=== PATIENT | male | born 1985 | race Hispanic/Latino ===

== ENCOUNTER 2022-03-02 10:53 | Inpatient (IN) | payer SELFPAY ==
[2022-03-02] MEDS ORDERED: KETOROLAC 30 MG/ML INJ ONE ×2 (11:13→13:37)
[2022-03-02] MEDS ORDERED: ALBUTEROL 2.5 MG/3 ML NEB SOL ONE ×2 (11:13→13:36)
[2022-03-02] MEDS ORDERED: ONDANSETRON 4 MG/2 ML VIAL ONE (11:13)
[2022-03-02 11:25] LABS: Absolute Lymphocytes (CBC) 1.1 K/uL (0.7-4.9); Lymphocytes % 7.4 % (15.3-44.8); MCV 85.7 fL (80-100); MPV 8.8 fL (7.6-11.3); RBC Red Blood Cell Count 5.14 M/uL (4.33-5.43)
--- NOTE | 2022-03-02 11:30 | RAD REPORT ---
EXAM DESCRIPTION: RAD - Chest Single View - 03/02/2022 11:21 am CLINICAL HISTORY: CHEST PAINleft side COMPARISON: None TECHNIQUE: AP portable chest image was obtained 03/02/2022 11:21 am . FINDINGS: Lung volumes are low. Moderately large area of consolidation seen in the lateral lower lef t lung field typical for pneumonia. No focal right lung parenchymal process confirmed. The low lung v olumes accentuate the lung parenchymal pattern. Trachea is midline. Heart and vasculature are normal. No measurable pleural effusion and no pneumotho rax. No acute bony abnormality seen. No acute aortic findings suspected. IMPRESSION: Moderately large pneumonia in the left lung base.
[2022-03-02] MEDS ORDERED: NA CHLORIDE 0.9% 1,000 ML ONE (11:31)
[2022-03-02 11:43] LABS: Potassium 3.1 mmol/L (3.5-5.1); Troponin High Sensitivity 8.8 pg/mL (<58.9)
--- NOTE | 2022-03-02 12:28 | RAD REPORT ---
EXAM DESCRIPTION: CT - Chest For Pe Angio - 03/02/2022 12:11 pm CLINICAL HISTORY: elevated D-dimer, hypoxic, SOB COMPARISON: Chest Single View dated 03/02/2022 TECHNIQUE: Dynamically enhanced 3 mm thick images of the chest were obtained during administration o f approximately 150mL Isovue 370 IV contrast. Coronal and oblique MIP reconstruction images were gene rated and reviewed. Exam utilizes a protocol to evaluate the pulmonary arterial tree. All CT scans are performed using dose optimization technique as appropriate and may include automated exposure control or mA/KV adjustment according to patient size. FINDINGS: Exam has significant motion limitation. No pulmonary emboli are identified. The aorta as imaged shows no acute or suspicious finding. No pericardial thickening or effusion. Moderately large area of consolidation is present involving the lingula of the left upper lobe. A few air bronchograms are seen. No cavitation or mass lesion. Pulmonary hemorrhage is not suspected. Mini mal patchy airspace opacities are present in the posteromedial left lower lobe, posterior gutter on t he right and in the mid lateral right upper lobe. Findings are felt to be typical for multifocal pneu monia with the largest area at the anterior left base. No pleural effusion or pleural thickening. A few small reactive type mediastinal and hilar lymph nodes are present. No pathologic mediastinal ly mphadenopathy suspected. No chest wall masses or abnormal axillary lymphadenopathy. IMPRESSION: Motion degraded study shows no identifiable pulmonary emboli. Moderately large consolidated pneumonia in the lingula anterior left lung base. Patchy areas of addit ional pneumonia noted in the right upper lobe, right lower lobe posterior gutter and posteromedial le ft lower lobe.
--- NOTE | 2022-03-02 13:00 | EDPHYS ---
Physician Documentation [facility] Name: Jesse Cunha Age: 36 yrs Sex: Male : 1985 Arrival Date: 03/02/2022 Time: 10:54 Bed 5 Private MD: ED Physician Uriel Julien HPI: 03/02 11:00 This 36 yrs old Male presents to ER via Ambulatory with complaints of Chest jh7 Pain, Doesn't Feel Right. 11:00 Onset: The symptoms/episode began/occurred acutely. Associated signs and symptoms: jh7 Pertinent positives: chest pain, cough, shortness of breath, Pertinent negatives: abdominal pain, diarrhea, fever, headache, nasal discharge. 36-year-old male presents with left-sided chest pain worsening with cough since he was diagnosed with the flu on Sunday. Reports that symptoms worsened today and now he feels short of breath. Reports the pain is an 8 out of 10. Denies medical problems and does not smoke.. Historical: - Allergies: 11:01 No Known Allergies; ld1 - Home Meds: 11: None [Active]; ld1 - PMHx: 11: None; ld1 - PSHx: 11:01 None; ld1 - Immunization history:: Adult Immunizations up to date, Client reports receiving the 2nd dose of the Covid vaccine. - Social history:: Smoking status: Patient denies any tobacco usage or history of. Patient/guardian denies using alcohol. ROS: 11:00 Constitutional: Negative for fever, chills, and weight loss, Eyes: Negative for injury, jh7 pain, redness, and discharge, ENT: Negative for injury, pain, and discharge, Neck: Negative for injury, pain, and swelling, Abdomen/GI: Negative for abdominal pain, nausea, vomiting, diarrhea, and constipation, Back: Negative for injury and pain, MS/Extremity: Negative for injury and deformity, Skin: Negative for injury, rash, and discoloration, Neuro: Negative for headache, weakness, numbness, tingling, and seizure. 11:00 Cardiovascular: Positive for chest pain, Negative for palpitations. 11:00 Respiratory: Positive for cough, shortness of breath, Negative for wheezing. 11:00 All other systems are negative. Exam: 11:00 Eyes: Pupils equal round and reactive to light, extra-ocular motions intact. Lids and jh7 lashes normal. Conjunctiva and sclera are non-icteric and not injected. Cornea within normal limits. Periorbital areas with no swelling, redness, or edema. ENT: Nares patent. No nasal discharge, no septal abnormalities noted. Tympanic membranes are normal and external auditory canals are clear. Oropharynx with no redness, swelling, or masses, exudates, or evidence of obstruction, uvula midline. Mucous membranes moist. Neck: Trachea midline, no thyromegaly or masses palpated, and no cervical lymphadenopathy. Supple, full range of motion without nuchal rigidity, or vertebral point tenderness. No Meningismus. Abdomen/GI: Soft, non-tender, with normal bowel sounds. No distension or tympany. No guarding or rebound. No evidence of tenderness throughout. Back: No spinal tenderness. No costovertebral tenderness. Full range of motion. Skin: Warm, dry with normal turgor. Normal color with no rashes, no lesions, and no evidence of cellulitis. MS/ Extremity: Pulses equal, no cyanosis. Neurovascular intact. Full, normal range of motion. Neuro: Awake and alert, GCS 15, oriented to person, place, time, and situation. Motor strength 5/5 in all extremities. Sensory grossly intact. Normal gait. 11:00 Constitutional: The patient appears alert, awake, uncomfortable. 11:00 Respiratory: mild respiratory distress is noted, Respirations: tachypnea, Breath sounds: rales, are scattered, decreased breath sounds, are scattered. Vital Signs: 10:58 BP 128 / 86; Pulse 118; Resp 20; Temp 98.5; Pulse Ox 94% on R/A; Weight 83.91 kg; ld1 Height 5 ft. 10 in. (177.80 cm); Pain 8/10; 13:30 BP 129 / 80; Pulse 108; Resp 20; Pulse Ox 98% ; bp 15:00 BP 122 / 68; Pulse 110; Resp 18; Pulse Ox 92% ; bp 17:00 BP 137 / 76; Pulse 114; Resp 20; Pulse Ox 92% ; bp 10:58 Body Mass Index 26.54 (83.91 kg, 177.80 cm) 1 MDM: 10:[address] [facility] 13:11 Differential diagnosis: bacterial infection, bronchitis, pneumonia Pulmonary embolism. [facility] Data reviewed: vital signs, nurses notes, lab test result(s), EKG, radiologic studies, CT scan, plain films. Data interpreted: Pulse oximetry: is 94 %. Interpretation: acceptable. Counseling: I had a detailed discussion with the patient and/or guardian regarding: the historical points, exam findings, and any diagnostic results supporting the discharge/admit diagnosis, the need for further work-up and treatment in the hospital. Response to treatment: the patient's symptoms have mildly improved after treatment. ED course: Spoke to Dr. Luo regarding patient admission. The patient is to be admitted under inpatient status.. 03/02 11:03 Order name: Basic Metabolic Panel; Complete Time: 11:52 [facility] 03/02 11:03 Order name: CBC with Diff; Complete Time: 11:52 [facility] 03/02 11:03 Order name: D-Dimer; Complete Time: 11:58 [facility] 03/02 11:03 Order name: Troponin HS; Complete Time: 11:52 [facility] 03/02 11:12 Order name: Lactate w/ 2H reflex if indic.; Complete Time: 12:03 [facility] 03/02 11:52 Order name: Blood Culture Adult (2) [facility] 03/02 11:03 Order name: XRAY Chest (1 view); Complete Time: 11:52 [facility] 03/02 11:58 Order name: CT Chest For PE Angio; Complete Time: 12:47 [facility] 03/02 12:56 Order name: COVID-19/FLU A+B [facility] 03/02 11:03 Order name: EKG; Complete Time: 11:04 [facility] 03/02 11:03 Order name: Cardiac monitoring; Complete Time: 11:15 [facility] 03/02 11:03 Order name: EKG - Nurse/Tech; Complete Time: 11:15 [facility] 03/02 11:03 Order name: IV Saline Lock; Complete Time: 11:35 [facility] 03/02 11:03 Order name: Labs collected and sent; Complete Time: 11:35 [facility] 03/02 11:03 Order name: O2 Per Protocol; Complete Time: : [facility] 03/02 11:03 Order name: O2 Sat Monitoring; Complete Time: 11:15 [facility] EC:00 Rate is 115 beats/min. Rhythm is regular. GA interval is normal at 138 msec. QRS jh7 interval is normal at 88 msec. QT interval is normal at 310 msec. No Q waves. No ST changes noted. Clinical impression: Sinus tachycardia. Administered Medications: 11:30 Drug: Ketorolac 15 mg Route: IVP; Site: right forearm; bp 17:12 Follow up: Response: No adverse reaction bp 11:30 Drug: Albuterol 2.5 mg Route: Inhalation; bp 11:30 Drug: Zofran (Ondansetron) 4 mg Route: IVP; Site: right forearm; bp 13:51 Follow up: Response: No adverse reaction bp 11:30 Drug: NS 0.9% 1000 ml Route: IV; Rate: 1 bolus; Site: right forearm; bp 13:51 Follow up: IV Status: Completed infusion; IV Intake: 1000ml bp 13:10 Drug: Albuterol - atroVENT (ipratropium) (3:1) (2.5 mg - 0.5 mg) 3 ml Route: Nebulizer; bp 17:11 Follow up: Response: No adverse reaction bp 13:10 Drug: Ketorolac 15 mg Route: IVP; Site: right forearm; bp 17:11 Follow up: Response: No adverse reaction; Pain is decreased bp 13:30 Drug: Rocephin (cefTRIAXone) 1 grams Route: IV; Rate: 1 calculated rate; Site: right bp forearm; 17:12 Follow up: IV Status: Completed infusion; IV Intake: 100ml bp 13:30 Drug: AZITHromycin 500 mg Route: IVPB; Infused Over: 1 hrs; Site: right forearm; bp 17:11 Follow up: IV Status: Completed infusion; IV Intake: 250ml bp 13:30 Drug: Potassium Effervescent Tablet 50 mEq Route: PO; bp 17:11 Follow up: Response: No adverse reaction bp Disposition Summary: 03/02/22 12:59 Hospitalization Ordered Hospitalization Status: Inpatient Admission [facility] Provider: Leo Luo [facility] Location: Telemetry/MedSurg (Inpatient) [facility] Condition: Stable [facility] Problem: new [facility] Symptoms: are unchanged [facility] Bed/Room Type: Standard [facility] Room Assignment: 228(03/02/22 17:00) dw Diagnosis - Pneumonia, unspecified organism [facility] - Shortness of breath [facility] Forms: - Medication Reconciliation Form [facility] - SBAR form [facility] Signatures: Dispatcher [employer] Edelmira Comer RN RN Antwan Shelby RN RN bp Anabell Smyth RN RN ld1 Marianela Beard, EXTRACTOR P[employer]ER [place] [id number] Corrections: (The following items were deleted from the chart) 17:00 12:59 [facility]
--- NOTE | 2022-03-02 13:00 | ER ---
Nurse's Notes [facility] Name: Jesse Cunha Age: 36 yrs Sex: Male : 1985 Arrival Date: 03/02/2022 Time: 10:54 Bed 5 Private MD: Diagnosis: Pneumonia, unspecified organism;Shortness of breath Presentation: 03/02 10:58 Chief complaint: Patient states: Tested positive for flu on Sunday. Cough with left ld1 sided chest pain. Coronavirus screen: Client presents with at least one sign or symptom that may indicate coronavirus-19. Standard/surgical mask placed on the client. Ebola Screen: No symptoms or risks identified at this time. Initial Sepsis Screen: Does the patient meet any 2 criteria? No. Patient's initial sepsis screen is negative. Does the patient have a suspected source of infection? No. Patient's initial sepsis screen is negative. Risk Assessment: Do you want to hurt yourself or someone else? Patient reports no desire to harm self or others. Onset of symptoms was March 02, 2022 at 11:00. 10:58 Method Of Arrival: Ambulatory ld1 10:58 Acuity: MOE 3 ld1 Triage Assessment: 11:01 General: Appears in no apparent distress. comfortable, Behavior is calm, cooperative, ld1 appropriate for age. Pain: Complains of pain in anterior aspect of left upper chest Pain does not radiate. Pain currently is 8 out of 10 on a pain scale. Quality of pain is described as sharp, shooting, throbbing. EENT: No signs and/or symptoms were reported regarding the EENT system. Neuro: Level of Consciousness is awake, alert, obeys commands, Oriented to person, place, time, situation. Cardiovascular: Capillary refill < 3 seconds Patient's skin is warm and dry. Rhythm is sinus tachycardia. Respiratory: Reports shortness of breath at rest Airway is patent Respiratory effort is even, labored, the patient has mild shortness of breath. GI: Abdomen is flat, non-distended. : No signs and/or symptoms were reported regarding the genitourinary system. Derm: No signs and/or symptoms reported regarding the dermatologic system. Musculoskeletal: No signs and/or symptoms reported regarding the musculoskeletal system. Historical: - Allergies: 11: No Known Allergies; ld1 - Home Meds: 11:01 None [Active]; ld1 - PMHx: 11:01 None; ld1 - PSHx: 11:01 None; ld1 - Immunization history:: Adult Immunizations up to date, Client reports receiving the 2nd dose of the Covid vaccine. - Social history:: Smoking status: Patient denies any tobacco usage or history of. Patient/guardian denies using alcohol. Screenin:00 [facility] ED Fall Risk Assessment (Adult) History of falling in the last 3 months, bp including since admission No falls in past 3 months (0 pts). Humpty Dumpty Scale Fall Assessment Tool (age< 18yrs) Age 13 years and above (1 pt) Gender Male (2 pts). Abuse screen: Denies threats or abuse. Denies injuries from another. Nutritional screening: No deficits noted. Tuberculosis screening: No symptoms or risk factors identified. Fall Risk Fall in past 12 months (25 points). No secondary diagnosis (0 pts). Assessment: 11:00 General: SEE TRIAGE NOTE. bp 13:00 Reassessment: PER PROVIDER, PNEUMONIA NOTED ON CXR. bp 13:53 Reassessment: ADMIT INITIATED. bp Vital Signs: 10:58 BP 128 / 86; Pulse 118; Resp 20; Temp 98.5; Pulse Ox 94% on R/A; Weight 83.91 kg; ld1 Height 5 ft. 10 in. (177.80 cm); Pain 8/10; 13:30 BP 129 / 80; Pulse 108; Resp 20; Pulse Ox 98% ; bp 15:00 BP 122 / 68; Pulse 110; Resp 18; Pulse Ox 92% ; bp 17:00 BP 137 / 76; Pulse 114; Resp 20; Pulse Ox 92% ; bp 10:58 Body Mass Index 26.54 (83.91 kg, 177.80 cm) ld1 ED Course: 10:54 Patient arrived in ED. am2 10:55 Marianela Beard FNP [facility] jh7 10:55 Uriel Julien MD is Attending Physician. 7 11:00 Triage completed. ld1 11:00 Patient has correct armband on for positive identification. Bed in low position. Call bp light in reach. Side rails up X2. Client placed on continuous cardiac and pulse oximetry monitoring. NIBP monitoring applied. 11:00 Oxygen administration via nasal cannula \T\ 2L/min. bp 11:01 Arm band placed on right wrist. ld1 11:04 Antwan Khalil, RN is Primary Nurse. bp 11:20 Missed attempt(s): 22 gauge in right antecubital area. kr3 11:23 XRAY Chest (1 view) In Process Unspecified. EDMS 11:30 Inserted saline lock: 22 gauge in right forearm, using aseptic technique. Blood bp collected. 12:13 CT Chest For PE Angio In Process Unspecified. EDMS 12:58 Leo Luo is Hospitalizing Provider. jh7 17:08 No provider procedures requiring assistance completed. Patient admitted, IV remains in bp place. Administered Medications: 11:30 Drug: Ketorolac 15 mg Route: IVP; Site: right forearm; bp 17:12 Follow up: Response: No adverse reaction bp 11:30 Drug: Albuterol 2.5 mg Route: Inhalation; bp 11:30 Drug: Zofran (Ondansetron) 4 mg Route: IVP; Site: right forearm; bp 13:51 Follow up: Response: No adverse reaction bp 11:30 Drug: NS 0.9% 1000 ml Route: IV; Rate: 1 bolus; Site: right forearm; bp 13:51 Follow up: IV Status: Completed infusion; IV Intake: 1000ml bp 13:10 Drug: Albuterol - atroVENT (ipratropium) (3:1) (2.5 mg - 0.5 mg) 3 ml Route: Nebulizer; bp 17:11 Follow up: Response: No adverse reaction bp 13:10 Drug: Ketorolac 15 mg Route: IVP; Site: right forearm; bp 17:11 Follow up: Response: No adverse reaction; Pain is decreased bp 13:30 Drug: Rocephin (cefTRIAXone) 1 grams Route: IV; Rate: 1 calculated rate; Site: right bp forearm; 17:12 Follow up: IV Status: Completed infusion; IV Intake: 100ml bp 13:30 Drug: AZITHromycin 500 mg Route: IVPB; Infused Over: 1 hrs; Site: right forearm; bp 17:11 Follow up: IV Status: Completed infusion; IV Intake: 250ml bp 13:30 Drug: Potassium Effervescent Tablet 50 mEq Route: PO; bp 17:11 Follow up: Response: No adverse reaction bp Medication: 11:00 VIS not applicable for this client. bp Intake: 13:51 IV: 1000ml; Total: 1000ml. bp 17:11 IV: 250ml; Total: 1250ml. bp 17:12 IV: 100ml; Total: 1350ml. bp Outcome: 12:59 Decision to Hospitalize by Provider. 7 18:05 Patient left the ED. bp Signatures: Dispatcher [employer] EDMS Re Zuniga am2 Antwan Khalil RN RN bp Anabell Smyth RN RN ld1 Marianela Beard FNP [employer]W OPERATOR 7 Shannan Christopher RN RN kr3 Corrections: (The following items were deleted from the chart) 11:02 10:58 BP 128 / 86; Pulse 118bpm; Resp 20bpm; Pulse Ox 94% RA; 83.91 kg; Height 5 ft. 10 ld1 in.; BMI: 26.5; Pain 8/10; ld1
[2022-03-02] MEDS ORDERED: CEFTRIAXONE 1000 MG/VIAL ONE ×2 (13:36→20:37)
[2022-03-02] MEDS ORDERED: NA CHLORIDE 0.9% 250 ML ONE (13:37)
[2022-03-02] MEDS ORDERED: AZITHROMYCIN 500 MG INJ IVPB ONE (13:37)
[2022-03-02] MEDS ORDERED: IPRATROPIUM BROM 0.5MG/2.5ML ONE (13:37)
--- NOTE | 2022-03-02 15:32 | P.HP ---
Certification for Inpatient Patient admitted to: Inpatient With expected LOS: >2 Midnights Practitioner: I am a practitioner with admitting privileges, knowledge of patient current condition, hospital course, and medical plan of care. Services: Services provided to patient in accordance with Admission requirements found in Title 42 Section 412.3 of the Code of Federal Regulations Patient History Date of Service: 03/02/22 Reason for admission: Shortness of breath, cough and chest pain History of Present Illness: 36-year-old gentleman with no known past medical history presented to the emergency department with a complaint of shortness of breath, nonproductive cough and chest pain. Patient tested positive for flu and negative COVID 3 days ago. Symptoms associated with nausea and vomiting. Patient denied any diarrhea. He reports chest pain associated with a cough and worse with deep breathing. Chest x-ray done in the emergency department demonstrated bilateral pneumonia. Her D-dimer is elevated. CTA thorax confirms bilateral infiltrates, no PE. Patient oxygen saturation was borderline at 90% on room air on presentation. Patient meets criteria for sepsis with tachycardia and leukocytosis. He is admitted for further management. - Past Medical/Surgical History Diabetic: No -: None -: None - Family History Family History: Reviewed- Non-Contributory - Social History Smoking Status: Never smoker Alcohol use: No Physical Examination - Physical Exam General: Alert, In no apparent distress, Oriented x3 HEENT: Mucous membr. moist/pink, Sclerae nonicteric Neck: Supple, JVD not distended Respiratory: Normal air movement, Crackles/rales (Bilateral bases) Cardiovascular: No edema, Normal S1 S2, Other (Tachycardia) Capillary refill: <2 Seconds Gastrointestinal: Normal bowel sounds, Soft and benign, Non-distended, No tenderness Musculoskeletal: No swelling Integumentary: No rashes, No erythema Neurological: Normal speech, Normal strength at 5/5 x4 extr, Cranial nerves 3-12 intact Lymphatics: No axilla or inguinal lymphadenopathy - Studies Laboratory Data (last 24 hrs) 03/02/22 11:12: WBC 14.20 H, Hgb 15.1, Hct 44.0, Plt Count 166 03/02/22 11:12: Sodium 130 L, Potassium 3.1 L, BUN 12, Creatinine 1.05, Glucose 149 H Assessment and Plan - Problems (Diagnosis) (1) Bacterial pneumonia Current Visit: Yes Status: Acute (2) Influenza Current Visit: Yes Status: Acute (3) Sepsis Current Visit: Yes Status: Acute - Plan Admit to the medical floor. Start empiric antibiotics-IV Rocephin and Zithromax for bacterial pneumonia. Patient also tested positive for influenza in outside facility. Screen for influenza and COVID-19 are pending. Start Tamiflu. Supportive measures with IV fluid, Pain management as needed. Diet as tolerated Follow blood cultures. Monitor CBC. - Advance Directives Does patient have a Living Will: No Does patient have a Durable POA for Healthcare: No
[2022-03-02 17:54] LABS: SARS-COV-2 RT PCR NEGATIVE (NEGATIVE)
[2022-03-02] MEDS ORDERED: MORPHINE 2 MG/ML SYR IV PRN (19:39)
[2022-03-02] MEDS ORDERED: ONDANSETRON 4 MG/2 ML VIAL IV PRN (19:39)
[2022-03-02] MEDS ORDERED: ALBUTEROL 2.5 MG/3 ML NEB SOL NEB PRN (19:39)
[2022-03-02] MEDS ORDERED: NA CHLORIDE 0.9% 50 ML ONE (20:40)
[2022-03-02] MEDS: NA CHLORIDE 0.9% 1,000 ML IV SCH (22:44)
[2022-03-02] MEDS: CEFTRIAXONE 1,000 MG in NA CHLORIDE 0.9% 50 ML IVPB SCH (22:44)
[2022-03-02] MEDS: OSELTAMIVIR 75 MG CAP PO SCH (22:44)
[2022-03-03 04:08] LABS: Hematocrit 36.3 % (39.6-49.0); Lymphocytes % 14.2 % (15.3-44.8); MCV 85.1 fL (80-100); RBC Red Blood Cell Count 4.27 M/uL (4.33-5.43)
[2022-03-03 04:23] LABS: Magnesium 1.9 mg/dL (1.6-2.4); Phosphorus 1.8 mg/dL (2.5-4.9); Potassium 3.1 mmol/L (3.5-5.1)
[2022-03-03 04:25] VITALS: BMI 26.5
[2022-03-03] MEDS ORDERED: POTASSIUM CL SA 10 MEQ TAB PO ONE ×4 (05:00→19:45)
[2022-03-03] MEDS: POTASS/SODIUM PHOSPHATE 1 PKT POWD.PACK PO SCH ×3 (06:18→08:38)
[2022-03-03] MEDS: OSELTAMIVIR 75 MG CAP PO SCH ×2 (08:28→20:24)
[2022-03-03] MEDS: CEFTRIAXONE 1,000 MG in NA CHLORIDE 0.9% 50 ML IVPB SCH ×2 (08:29→20:24)
[2022-03-03] MEDS: ENOXAPARIN 40 MG/0.4 ML SQ SCH (08:30)
[2022-03-03] MEDS: NA CHLORIDE 0.9% 1,000 ML IV SCH (08:37)
[2022-03-03] MEDS: AZITHROMYCIN IV 500 MG in NA CHLORIDE 0.9% 250 ML IVPB SCH (08:38)
[2022-03-03] MEDS ORDERED: NA CHLORIDE 0.9% 250 ML ONE (08:38)
[2022-03-03] MEDS ORDERED: ACETAMINOPHEN 325 MG TABLET PO PRN (08:41)
--- NOTE | 2022-03-03 12:23 | P.PN ---
Subjective Date of Service: 03/03/22 Chief Complaint: Shortness of breath, cough and chest pain Patient is experiencing intermittent fever. He tested positive for influenza A. He states that his chest pain is better. No nausea or vomiting and has been tolerating diet. Physical Examination - Vital Signs Temperature: 100.7 F Blood Pressure: 105/57 Pulse: 101 Respirations: 18 Pulse Ox (%): 90 Assessment And Plan - Current Problems (Diagnosis) (1) Bacterial pneumonia Current Visit: Yes Status: Acute (2) Influenza Current Visit: Yes Status: Acute (3) Sepsis Current Visit: Yes Status: Acute - Plan Physical Exam General: Alert, In no apparent distress. Neck: Supple, JVD not distended Respiratory: Normal air movement, Crackles/rales (Bilateral bases) Cardiovascular: No edema, Normal S1 S2, Other (Tachycardia) Gastrointestinal: Normal bowel sounds, Soft and benign, Non-distended, No tenderness Musculoskeletal: No swelling Integumentary: No rashes, No erythema Neurological: No focal motor deficit. Continue IV Rocephin and Zithromax for bacterial pneumonia. Patient also tested positive for influenza in outside facility. Screen for influenza and COVID-19 are pending. Continue Tamiflu. Supportive measures with IV fluid, Pain management as needed. Diet as tolerated Blood cultures are pending. Monitor CBC to follow leukocytosis.
--- NOTE | 2022-03-03 12:55 | EKG ---
Test Date: 2022-03-02 Test Time: 11:08:29 Candy Supervisor: TOSHIA MEASUREMENT RESULTS: Intervals: Rate: 115 OK: 138 QRSD: 88 QT: 310 QTc: 428 [place]: P: 49 OK: 138 QRS: -11 T: 7 INTERPRETIVE STATEMENTS: Sinus tachycardia Possible Left atrial enlargement Left ventricular hypertrophy Nonspecific ST and T wave abnormality Abnormal ECG No previous ECG available for comparison Electronically Signed On 03-03-22 12:52:10 FRONT DESK LEAD by Adarsh Gutiérrez
[2022-03-03] MEDS ORDERED: CEFTRIAXONE 1000 MG/VIAL ONE (19:40)
[2022-03-03] MEDS ORDERED: NA CHLORIDE 0.9% 50 ML ONE (19:42)
[2022-03-04] MEDS: NA CHLORIDE 0.9% 1,000 ML IV SCH (00:42)
[2022-03-04 03:42] LABS: Hematocrit 35.4 % (39.6-49.0); Lymphocytes % 12.9 % (15.3-44.8); MCV 84.7 fL (80-100); RBC Red Blood Cell Count 4.18 M/uL (4.33-5.43)
[2022-03-04 03:57] LABS: Potassium 3.5 mmol/L (3.5-5.1)
[2022-03-04 04:13] LABS: Blood Morphology Comment NOT SEEN (NOT SEEN); Platelet Estimate ADEQ
[2022-03-04] MEDS: ENOXAPARIN 40 MG/0.4 ML SQ SCH (08:06)
[2022-03-04] MEDS: OSELTAMIVIR 75 MG CAP PO SCH (08:07)
[2022-03-04] MEDS: AZITHROMYCIN IV 500 MG in NA CHLORIDE 0.9% 250 ML IVPB SCH (08:07)
[2022-03-04] MEDS: CEFTRIAXONE 1,000 MG in NA CHLORIDE 0.9% 50 ML IVPB SCH (08:07)
[2022-03-04 08:25] VITALS: BP 118/63; TEMP 98.2
[2022-03-04] MEDS ORDERED: POTASSIUM CL SA 10 MEQ TAB PO ONE (09:00)
--- NOTE | 2022-03-04 10:12 | P.DS ---
Admission Date: 03/02/22 Discharge Date: 03/04/22 Disposition: ROUTINE DISCHARGE Discharge Condition: FAIR Reason for Admission: Shortness of breath, cough and chest pain - Problems (1) Bacterial pneumonia Current Visit: Yes Status: Acute (2) Influenza Current Visit: Yes Status: Acute (3) Sepsis Current Visit: Yes Status: Acute Brief History of Present Illness: 36-year-old gentleman with no known past medical history presented to the emergency department with a complaint of shortness of breath, nonproductive cough and chest pain. Patient tested positive for flu and negative COVID 3 days ago. Symptoms associated with nausea and vomiting. Patient denied any diarrhea. He reports chest pain associated with a cough and worse with deep breathing. Chest x-ray done in the emergency department demonstrated bilateral pneumonia. Her D-dimer is elevated. CTA thorax confirms bilateral infiltrates, no PE. Patient oxygen saturation was borderline at 90% on room air on presentation. Patient met criteria for sepsis with tachycardia and leukocytosis. He was admitted for further management. Hospital Course: Patient admitted to the medical floor and treated for pneumonia with IV Rocephin and Zithromax. Also treated with bronchodilators. Patient clinically improved with treatment. He tolerated diet and was ambulatory. He has been stable on room air both at rest and with ambulation and not hypoxic. Had intermittent fever which has resolved. Sepsis has resolved, patient states he feels much better and wants to go home. He is discharged with Augmentin and doxycycline to continue treatment for pneumonia. Vital Signs/Physical Exam: Temp Pulse Resp BP Pulse Ox 98.2 F 85 18 118/63 93 03/04/22 08:00 03/04/22 08:00 03/04/22 08:00 03/04/22 08:00 03/04/22 08:00 General: Alert, In no apparent distress, Oriented x3 HEENT: Mucous membr. moist/pink Neck: JVD not distended Respiratory: Clear to auscultation bilaterally, Normal air movement Cardiovascular: Regular rate/rhythm, Normal S1 S2 Gastrointestinal: Soft and benign, Non-distended, No tenderness Musculoskeletal: No swelling Integumentary: No rashes Neurological: Normal strength at 5/5 x4 extr Laboratory Data at Discharge: WBC 15.50 K/uL (4.3-10.9) H 03/04/22 03:14 Hgb 12.2 g/dL (13.6-17.9) L 03/04/22 03:14 Hct 35.4 % (39.6-49.0) L 03/04/22 03:14 Plt Count 142 K/uL (152-406) L 03/04/22 03:14 Sodium 132 mmol/L (136-145) L 03/04/22 03:14 Potassium 3.5 mmol/L (3.5-5.1) 03/04/22 03:14 BUN 9 mg/dL (7-18) 03/04/22 03:14 Creatinine 0.64 mg/dL (0.70-1.30) L 03/04/22 03:14 Glucose 99 mg/dL (74-106) 03/04/22 03:14 Phosphorus 1.8 mg/dL (2.5-4.9) L 03/03/22 03:39 Magnesium 1.9 mg/dL (1.6-2.4) 03/03/22 03:39 Home Medications: Amox/Clavulanate [Augmentin 875-125 Tab] 875 mg PO BID #16 tab 03/04/22 Doxycycline Hyclate 100 mg PO BID #16 cap 03/04/22 Oseltamivir [Tamiflu*] 75 mg PO BID #6 cap 03/04/22 guaiFENesin [Robitussin 100MG/5ML] 10 ml PO QID PRN #1 bottle 03/04/22 New Medications: Amox/Clavulanate [Augmentin 875-125 Tab] 875 mg PO BID #16 tab Doxycycline Hyclate 100 mg PO BID #16 cap guaiFENesin [Robitussin 100MG/5ML] 10 ml PO QID PRN #1 bottle PRN Reason: Cough Oseltamivir [Tamiflu*] 75 mg PO BID #6 cap Diet: Regular Activity: Ad jayy Followup: NONE,NONE [Primary Care Provider] - 1-2 Weeks Time spent managing pt's care (in minutes): 32
[2022-03-04 10:33] VITALS: O2SAT 96
--- NOTE | 2022-03-04 10:39 | RAD REPORT ---
EXAM DESCRIPTION: Maryt Single View03/04/2022 10:11 am CLINICAL HISTORY: Pneumonia COMPARISON: March 02, 2022 FINDINGS: No significant change in the lingular consolidation. Mild worsening in the right upper lobe opacities Heart is normal size IMPRESSION: No significant change in the lingular consolidation Mild worsening in the right upper lobe opacities likely pneumonia
[2022-03-04] MEDS ORDERED: ALBUTEROL 2.5 MG/3 ML NEB SOL NEB PRN (12:00)
== END 2022-03-04 11:40 | disposition home or self-care (01) | DRG 871 ==
LOC: ER 10:53 → ERHOLD 15:21 → 2ND 17:35
PROVIDERS: ADMIT Internal Medicine; ATTEND Internal Medicine
DX: A41.89 Other specified sepsis (principal); J10.08 Influenza due to other identified influenza virus with other specified pneumonia; J15.9 Unspecified bacterial pneumonia; Z20.822 Contact with and (suspected) exposure to COVID-19; Z79.899 Other long term (current) drug therapy
CPT/HCPCS: 0240U; 36415; 71045; 71275; 80048; 83605; 83735; 84100; 84132; 84484; 85025; 85379; 87040; 93005; 94640; 94760; 96361; 96365; 96366; 96368; 96375; 99285; J0456; J1650; J2405; J7030; J7050; J7613; J7644; Q9967